=== PATIENT | male | born 1975 | race Caucasian/White ===

== ENCOUNTER 2018-09-18 08:14 | Outpatient (CLI) | payer BC, SELFPAY ==
[2018-09-18 10:47] LABS: Cholesterol 146 mg/dL (50-200); HDL Cholesterol 45 mg/dL (40-60); LDL CHOLESTEROL 84 mg/dL (<100); Triglyceride 62 mg/dL (30-150)
== END 2018-09-18 08:34 ==
PROVIDERS: PCP Family Medicine; Visit Provider Family Medicine
DX: E78.5 Hyperlipidemia, unspecified (principal)
CPT/HCPCS: 36415; 80061; 83721

== ENCOUNTER 2020-08-19 04:18 | Outpatient (CLI) | payer OTHER, SELFPAY ==
[2020-08-19 07:56] LABS: HCT 48.4 % (40.0-50.0); HGB 16.3 g/dL (13.5-17.5); MCH 30.5 pg (27.0-33.0); MCHC 33.7 % (32.0-36.0); MCV 90.5 fL (80-95); Platelet Count 251 10^3/uL (130-400); RBC 5.35 10^6/uL (4.36-5.78); RDW 12.3 % (11.8-14.1); RDW-SD 40.4 fL
[2020-08-19 09:22] LABS: ALT 35 U/L (16-63); AST 25 U/L (15-37); Albumin 4.3 g/dL (3.4-5.0); Alkaline Phosphatase 43 U/L (46-116); Anion Gap 7.2 mmol/L (3-11); BUN 19 mg/dL (7-18); Bilirubin, Total 0.8 mg/dL (0.2-1.0); CO2 28.8 mmol/L (21.0-32.0); CREATININE 1.07 mg/dL (0.70-1.30); Calcium 9.4 mg/dL (8.5-10.1); Calculated LDL 87 mg/dL (<100); Chloride 103 mmol/L (98-107); Cholesterol 141 mg/dL (<200); Glucose 91 mg/dL (74-106); HDL Cholesterol 40 mg/dL (40-60); Potassium 4.8 mmol/L (3.5-5.1); Sodium 139 mmol/L (136-145); Total Protein 6.9 g/dL (6.4-8.2); Triglyceride 70 mg/dL (<150)
== END 2020-08-19 04:38 ==
PROVIDERS: PCP Family Medicine; Visit Provider Family Medicine
DX: Z00.00 Encounter for general adult medical examination without abnormal findings (principal); E78.5 Hyperlipidemia, unspecified; R10.13 Epigastric pain; Z83.3 Family history of diabetes mellitus
CPT/HCPCS: 36415; 80053; 80061; 85027

== ENCOUNTER 2021-08-26 02:36 | Outpatient (CLI) | payer OTHER, SELFPAY ==
[2021-08-26 09:34] LABS: ALT 47 U/L (16-63); AST 25 U/L (15-37); Albumin 4.2 g/dL (3.4-5.0); Alkaline Phosphatase 55 U/L (46-116); Anion Gap 8.1 mmol/L (3-11); BUN 22 mg/dL (7-18); Bilirubin, Total 0.6 mg/dL (0.2-1.0); CO2 28.9 mmol/L (21.0-32.0); CREATININE 1.1 mg/dL (0.70-1.30); Calcium 9.3 mg/dL (8.5-10.1); Calculated LDL 140 mg/dL (<100); Chloride 101 mmol/L (98-107); Cholesterol 197 mg/dL (<200); Glucose 96 mg/dL (74-106); HDL Cholesterol 42 mg/dL (40-60); Potassium 4.8 mmol/L (3.5-5.1); Sodium 138 mmol/L (136-145); Triglyceride 79 mg/dL (<150)
== END 2021-08-26 02:37 | disposition home or self-care (01) ==
LOC: LBO 02:36
PROVIDERS: PCP Family Medicine; Visit Provider Family Medicine
DX: E78.5 Hyperlipidemia, unspecified (principal); R10.31 Right lower quadrant pain; Z00.00 Encounter for general adult medical examination without abnormal findings; Z83.3 Family history of diabetes mellitus
CPT/HCPCS: 36415; 80053; 80061

== ENCOUNTER 2022-10-14 04:05 | Outpatient (CLI) | payer OTHER, SELFPAY ==
[2022-10-14 12:57] LABS: ALT 38 U/L (16-63); AST 25 U/L (15-37); Albumin 4.3 g/dL (3.4-5.0); Alkaline Phosphatase 46 U/L (46-116); Anion Gap 7.3 mmol/L (3-11); BUN 20 mg/dL (7-18); Bilirubin, Total 0.8 mg/dL (0.2-1.0); CO2 28.7 mmol/L (21.0-32.0); CREATININE 1.1 mg/dL (0.70-1.30); Calcium 9.6 mg/dL (8.5-10.1); Calculated LDL 111 mg/dL (<100); Chloride 102 mmol/L (98-107); Cholesterol 172 mg/dL (<200); Estimated GFR 83.84 (mL/min/1.73m2); Glucose 92 mg/dL (74-106); HDL Cholesterol 45 mg/dL (40-60); Potassium 4.2 mmol/L (3.5-5.1); Sodium 138 mmol/L (136-145); Total Protein 7.3 g/dL (6.4-8.2); Triglyceride 83 mg/dL (<150)
== END 2022-10-14 04:06 | disposition home or self-care (01) ==
LOC: LOS 04:05
PROVIDERS: PCP Family Medicine; Visit Provider Family Medicine
DX: E78.5 Hyperlipidemia, unspecified (principal)
CPT/HCPCS: 36415; 80053; 80061

== ENCOUNTER 2023-11-17 01:17 | Outpatient (CLI) | payer OTHER, SELFPAY ==
[2023-11-17 12:49] LABS: ALT 35 U/L (16-63); AST 20 U/L (15-37); Albumin 4.1 g/dL (3.4-5.0); Alkaline Phosphatase 52 U/L (46-116); Anion Gap 8.3 mmol/L (3-11); BUN 17 mg/dL (7-18); Bilirubin, Total 0.7 mg/dL (0.2-1.0); CO2 26.7 mmol/L (21.0-32.0); CREATININE 1.2 mg/dL (0.70-1.30); Calcium 9.8 mg/dL (8.5-10.1); Calculated LDL 172 mg/dL (<100); Chloride 103 mmol/L (98-107); Cholesterol 231 mg/dL (<200); Estimated GFR 75.06 (mL/min/1.73m2); Glucose 98 mg/dL (74-106); HDL Cholesterol 43 mg/dL (40-60); Potassium 4.3 mmol/L (3.5-5.1); Sodium 138 mmol/L (136-145); Total Protein 7.2 g/dL (6.4-8.2); Triglyceride 81 mg/dL (<150)
[2023-11-17 13:01] LABS: Vitamin D 25 Total 47.5 ng/mL (30-100)
== END 2023-11-17 01:18 | disposition home or self-care (01) ==
LOC: LOS 01:17
PROVIDERS: PCP Family Medicine; Visit Provider Family Medicine
DX: Z00.00 Encounter for general adult medical examination without abnormal findings (principal)
CPT/HCPCS: 36415; 80053; 80061; 82306

== ENCOUNTER 2025-01-23 01:39 | Outpatient (CLI) | payer OTHER, SELFPAY ==
[2025-01-23 12:40] LABS: ALT 52 U/L (16-63); AST 26 U/L (15-37); Albumin 4.2 g/dL (3.4-5.0); Alkaline Phosphatase 58 U/L (46-116); Anion Gap 6.8 mmol/L (3-11); BUN 24 mg/dL (7-18); Bilirubin, Total 0.7 mg/dL (0.2-1.0); CO2 30.2 mmol/L (21.0-32.0); Calcium 9.5 mg/dL (8.5-10.1); Calculated LDL 98 mg/dL (<100); Chloride 103 mmol/L (98-107); Cholesterol 161 mg/dL (<200); Estimated GFR 92.84 (mL/min/1.73m2); Glucose 90 mg/dL (74-106); HDL Cholesterol 43 mg/dL (>or=40); Potassium 4.2 mmol/L (3.5-5.1); Sodium 140 mmol/L (136-145); Total Protein 7.4 g/dL (6.4-8.2); Triglyceride 103 mg/dL (<150)
[2025-01-29 19:34] LABS: Testosterone, Free 12.7 ng/dL (4.26-16.4); Testosterone, Total 424 ng/dL (240-950)
== END 2025-01-23 01:40 | disposition home or self-care (01) ==
PROVIDERS: PCP Family Medicine; Visit Provider Family Medicine
DX: E78.5 Hyperlipidemia, unspecified (principal); R68.82 Decreased libido
CPT/HCPCS: 36415; 80053; 80061; 84402; 84403

== ENCOUNTER 2025-06-28 08:25 | Day surgery (SDC) | payer OTHER, SELFPAY ==
--- NOTE | 2025-06-27 18:23 | W.PM.DSUDISC ---
Date of service: 06/28/25 Discharge Plan Disposition Patient Disposition: Home Condition: Good Discharge Details Reason For Visit: screening colonoscopy Attending Provider: Alexi Alva Primary Care Provider: Lisandra Melchor Home Meds and New Rx's Prescriptions: Continued citalopram [Celexa] 10 mg tablet 10 mg PO QHS rosuvastatin 10 mg tablet 10 mg PO DAILY cholecalciferol (vitamin D3) 25 mcg (1,000 unit) capsule 25 mcg PO DAILY ascorbate calcium (vitamin C) 500 mg tablet 500 mg PO DAILY Galzin 50 mg (zinc) capsule 50 mg PO DAILY Fish Oil 100-160-1,000 mg capsule PO Discontinued bisacodyl [Dulcolax (bisacodyl)] 5 mg tablet,delayed release (DR/EC) 5 mg PO ONCE Qty: 4 0RF Rx Instructions: Take per colonoscopy instructions provided by ordering providers office polyethylene glycol 3350 17 gram/dose powder 17 g PO ONCE Qty: 238 0RF Rx Instructions: Take per colonoscopy instructions provided by ordering providers office No Action Mag Glycinate 100 mg tablet 100 mg PO DAILY Discharge Instructions Additional Instructions: Alexi, it was great to meet you today, I hope you feel well after the procedure. Things went very smoothly. Your prep was excellent, we could see everything fine. I did not see any signs of tumors, polyps, or anything else worrisome. With a normal screening colonoscopy today, no other significant risk factors, I recommend a screening interval of 10 years for your next test. If you need anything or have any questions at all, please do not hesitate to ask at any time. 1. If tolerated, consume a soft, low fiber diet for 1-2 days. 2[address] Do not drive, drink alcohol, operate machinery, make critical decisions, or do activities that require coordination or balance for 24 hours. 3. Because air was put into your colon during the procedure, expelling air from your rectum (passing gas or farting) is normal. 4. You may not have a bowel movement for 1-3 days because of the colonoscopy prep. This is normal. 5. Go directly to the emergency room if you notice any of the following: Develop chills (warm to touch), or if you have a thermometer and your temperature is above 101 Difficulty breathing or difficultly swallowing Persistent vomiting Severe abdominal pain, other than gas cramps Severe chest pain Black, tarry stools Any bleeding ? exceeding one tablespoon 6. Call your physician if the site where your intravenous was started becomes red, swollen, painful, and warm to touch. 7. Your physician has reviewed your pre-procedure medications. Please continue to take those medications as previously ordered. You will be given specific information/education regarding any changes to your medications before leaving. Stand Alone Forms: Anesthesia Discharge Inst., Regine Santos (DSU) Activity:: Activity as Tolerated Diet:: As Tolerated Discharge Orders Discharge Orders: Discharge Order (Routine); Ordered 06/27/25 Ordered By: Alexi Alva DS: Diagnosis Discharge Diagnosis (1) Normal screening colonoscopy: Status: Acute Asessment and Plan: Negative screening colonoscopy
--- NOTE | 2025-06-27 18:24 | COLE_ITS ---
Date of service: 06/28/25 Time of Service: 10:05 Colonoscopy Report Date of procedure: 06/28/25 Pre-op diagnosis general: screening colonoscopy Post-op diagnosis procedure note: other (Negative screening colonoscopy) Procedure: colonoscopy Surgeon: Alexi Alva Anesthesia Type: General:No Airway Estimated blood loss (mL): 0 Pathology: none sent Complications: None Disposition: same day Indications: Alexi is a 50 year old man who needs a screening colonoscopy Prep: Miralax/Dulcolax Procedure Start Time: 09:44 Procedure End Time: 09:55 Retraction Time: 7 Findings: Normal screening colonoscopy Procedure Description: After the induction of anesthesia, and with the patient in left lateral decubitus position, I began by performing an external anorectal exam.? Perineum and skin were normal, as was the anal verge.? There was no evidence of external hemorrhoids.? Next, I performed a digital rectal exam.? I did not appreciate any abnormal findings.? Next, I advanced a colonoscope into the rectal vault.? I performed retroflexion.? This appeared normal.? Using irrigation, I then advanced the colonoscope beyond the rectal folds and into the sigmoid colon before advancing towards the cecum.? The quality of the prep was excellent.? The scope was noted to be in the cecum by identification of the ileocecal valve and appendiceal orifice.? I then began withdrawing the colonoscope using repeated irrigation as necessary for full evaluation of the colonic mucosa. ?Once the scope was withdrawn to the level of the rectum, great care was taken to examine portions of the rectal folds.? I saw no signs of tumors, polyps, or any other pathology. Finally, the scope was withdrawn and the patient was brought to the same-day surgery recovery unit as the anesthetic wore off. ?The findings and instructions were shared with the patient prior to discharge. [place] Bowel Prep [place] Bowel Prep Right Colon: 3 Left Colon: 3 Transverse Colon: 3 Total Score: 9
[2025-06-28 08:36] VITALS: BP 129/94; PULSE 75; RESP 12; TEMP 36.4; O2SAT 98
[2025-06-28] MEDS: Lactated Ringers 1,000 ML 80 ML IV (08:59)
--- NOTE | 2025-06-28 09:32 | W.ANESPRE ---
General Info Date of Service Date Performed: 06/28/25 Height: 5 ft 8 in Weight: 105.2 kg Body Mass Index (BMI): 35.2 Surgical Procedure: Operation Date: 06/28/25 09:50 Proposed Procedure Side Surgeon p Colonoscopy Alexi Alva MD Actual Procedure Side Surgeon p Colonoscopy Not Applicable Alexi Alva MD Pre-Op Diagnosis Post-Op Diagnosis screening colonoscopy Meds Allergies and Home Medications Allergies Allergy/AdvReac Type Severity Reaction Status Date / Time No Known Allergies Allergy Unverified 06/28/25 08:33 Home Medication ?Medication ?Instructions ?Recorded citalopram 10 mg tablet (Celexa) 10 mg PO QHS 02/03/23 ascorbate calcium (vitamin C) 500 500 mg PO DAILY 02/27/25 mg tablet cholecalciferol (vitamin D3) 25 25 mcg PO DAILY 02/27/25 mcg (1,000 unit) capsule omega 3-ewy-pia-fish oil 100 cap PO 02/27/25 mg-160 mg-1,000 mg capsule (Fish Oil) Held on 06/28/25. Instructions: Duplicate rosuvastatin 10 mg tablet 10 mg PO DAILY 02/27/25 zinc acetate 50 mg (zinc) capsule 50 mg PO DAILY 02/27/25 (Galzin) magnesium glycinate 100 mg (as 100 mg PO DAILY 06/28/25 glycinate) tablet (Mag Glycinate) Current Visit Medications: Current Medications Generic Name Dose Route Start Last Admin Trade Name Freq PRN Reason Stop Dose Admin Ringer's Solution 1,000 mls @ 80 mls/hr 06/28/25 06:00 06/28/25 08:59 IV 06/28/25 23:59 80 mls/hr INFUSION CYNTHIA Administration IV Miscellaneous Supplies 1 each 06/28/25 06:00 Iv Access IV 06/28/25 23:59 DIRECTED CYNTHIA Sodium Chloride 0 ml 06/28/25 06:00 Normal Saline Flush 10 Ml Syr IV 06/28/25 23:59 PRN PRN Sodium Chloride 0 ml 06/28/25 06:00 Normal Saline 10 Ml Vial IJ 06/28/25 23:59 DIRECTED PRN Sterile Water 0 ml 06/28/25 06:00 Water,Injection,Sterile 10 Ml Vial IJ 06/28/25 23:59 DIRECTED PRN PFSH Active Problems Active Problems: Problem Status Onset Code Normal screening colonoscopy Acute Z12.11 Hyperlipidemia Acute E78.5 Right knee pain Acute M25.561 Surgical History Surgical History H/O hand surgery Tobacco Smoking/Tobacco Use Status: Never Alcohol Alcohol Intake: current Alcohol intake frequency: a few times a month Substance Use Substance use: Occasionally Substance use type: does not use Vital Signs and Lab Results Vital Signs Most Recent Vital Signs in EMR: Most Recent Vital Signs Temp Pulse Resp BP Pulse Ox 36.4 C L 75 12 129/94 H 98 06/28/25 08:36 06/28/25 08:36 06/28/25 08:36 06/28/25 08:36 06/28/25 08:36 Anesthesia Assessment and Plan Anesthesia History Personal History: No History of Anesthesia Complications Family History: No Family History of Anesthesia Complications Exercise Tolerance Exercise Tolerance: Metabolic Equivalents>4 Pertinent Negatives Pertinent Negatives: No Symptoms of GERD, No Major Cardiovascular Symptoms or Complaints and No Major Pulmonary Symptoms or Complaints Cardiac & Pulmonary Exam Cardiac Exam: Normal S1/S2 Heart Sounds Pulmonary Exam: Clear Bilateral Breath Sounds Implantable Cardiac Device Does patient have a Pacemaker or an ICD?: No Airway Exam Known Difficult Airway: No Mallampati Class: 2 Mouth Opening: Normal (> 3cm) Thyromental Distance: Greater than 3 cm Neck Range of Motion: Full ROM Neck Circumference: Normal Teeth Condition: Normal Dentition ASA Classification ASA Score: ASA 2 Emergency Case?: No NPO Status NPO Status: NPO Clears >2 hours, Solids >8 hours Anesthesia Plan Resuscitation Status: Full Code Anesthesia Technique: General Anesthesia Airway Planned: Natural Airway Monitors Used: Standard Monitors Preoperative Comments:: Waiting on YFN evaluation
[2025-06-28 09:33] VITALS: BMI 35.2
[2025-06-28 10:01] VITALS: BP 117/82; PULSE 62; RESP 16; TEMP 36; O2SAT 97
[2025-06-28 10:28] VITALS: BP 114/85; PULSE 54; RESP 16; TEMP 36.2; O2SAT 96
--- NOTE | 2025-06-28 11:05 | W.ANESPOSTOP ---
Postoperative Evaluation Date, Time and Location Date Performed: 06/28/25 Time Performed: 10:18 Patient Location: Day Surgery Unit Vital Signs Most Recent Imported Vital Signs: Most Recent Vital Signs Temp Pulse Resp BP Pulse Ox 36.2 C L 54 L 16 114/85 96 06/28/25 10:28 06/28/25 10:28 06/28/25 10:28 06/28/25 10:28 06/28/25 10:28 Pain Score Most Recent Pain Score: Most Recent Pain Score Pain Level 0 06/28/25 10:28 Assessment Mental Status: Awake (Alert & Oriented to Patient Baseline) Airway and Respiratory Function: Patent airway with normal (patient baseline) respiratory exam Cardiovascular Function: Hemodynamically Stable Hydration Status: Adequately Hydrated Nausea & Vomiting: No Nausea or Vomiting Pain: Pt. Denies Any Pain Peripheral Nerve Block: Patient did not receive a nerve block
== END 2025-06-28 10:36 | disposition home or self-care (01) ==
LOC: SUR 08:26
PROVIDERS: PCP Family Medicine; Visit Provider Surgery
PROC: 0DJD8ZZ Inspection of Lower Intestinal Tract, Via Natural or Artificial Opening Endoscopic (ICD-10-PCS; CPT 45378; principal; 2025-06-28 09:45)
DX: Z12.11 Encounter for screening for malignant neoplasm of colon (principal)
CPT/HCPCS: 45378; J2003; J2704

== ENCOUNTER 2025-07-09 03:21 | Outpatient (CLI) | payer OTHER, SELFPAY ==
[2025-07-09 09:59] LABS: Ferritin 200 ng/mL (26-388); Vitamin B12 510 pg/mL (193-986); Vitamin D 25 Total 48 ng/mL (30-100)
== END 2025-07-09 03:22 | disposition home or self-care (01) ==
LOC: LBO 03:21
PROVIDERS: PCP Family Medicine; Visit Provider Internal Medicine Sleep Medicine
DX: G47.61 Periodic limb movement disorder (principal); G47.9 Sleep disorder, unspecified; E55.9 Vitamin D deficiency, unspecified; R53.83 Other fatigue
CPT/HCPCS: 36415; 82306; 82607; 82728